=== PATIENT | female | born 1940 | race Caucasian/White ===

== ENCOUNTER 2016-12-15 06:30 | Inpatient (IN) | payer MEDICARE, OTHER ==
[~2016-12-15] VITALS: Ht 157.5 cm; Wt 54.6 kg
[2016-12-15] MEDS ORDERED: SODIUM CHLORIDE 0.9% 500 ML IV ONE (06:57)
[2016-12-15] MEDS ORDERED: LORAZEPAM 2MG/ML CPJ IV ONE (07:00)
[2016-12-15 07:18] LABS: BASOPHILS % 0.6 % (0.0-2.0); EOSINOPHILS % 1.7 % (0.0-5.0); HEMATOCRIT. 39.7 % (36.0-48.0); HEMOGLOBIN. 13.1 g/dL (12.0-16.0); LYMPHOCYTES % 26.9 % (20.0-50.0); MEAN CORPUSCULAR HEMOGLOBIN 30.4 pg (28.0-32.0); MEAN CORPUSCULAR VOLUME 92.1 fL (81.0-99.0); NEUTROPHILS % 64.8 % (40.0-76.0); PLATELET 178 x1000/uL (130-400); RED BLOOD CELL COUNT 4.31 mill/uL (4.2-5.4); RED CELL DISTRIBUTION WIDTH 15.5 % (11.6-14.6)
[2016-12-15 07:27] LABS: INR 1.1; PROTHROMBIN TIME 10.9 sec (9.4-11.6)
[2016-12-15 07:35] LABS: CARBON DIOXIDE 27 mEq/L (21-32); CHLORIDE 109 mEq/L (98-107); CREATINE KINASE 49 IU/L (26-192); ETHANOL BLOOD < 10 mg/dL; TROPONIN I < 0.02 ng/mL (0.00-0.04)
[2016-12-15 09:02] LABS: GLUCOSE URINE NEGATIVE (NEGATIVE); KETONES URINE NEGATIVE (NEGATIVE); LEUKOCYTE ESTERASE URINE NEGATIVE (NEGATIVE); NITRITE URINE NEGATIVE (NEGATIVE); OCCULT BLOOD URINE NEGATIVE (NEGATIVE); PH URINE 6.5 (4.5-8.0); PROTEIN URINE NEGATIVE (NEGATIVE)
[2016-12-15 09:08] LABS: CLARITY URINE CLEAR (CLEAR); COLOR URINE YELLOW (YELLOW)
[2016-12-15 09:14] LABS: *AMPHETAMINES SCREEN URINE NEGATIVE (NEGATIVE); *BARBITURATES SCREEN URINE NEGATIVE (NEGATIVE); *BENZODIAZEPINES SCREEN URINE NEGATIVE (NEGATIVE); *COCAINE SCREEN URINE NEGATIVE (NEGATIVE); CANNABINOID URINE SCREEN NEGATIVE (NEGATIVE); METHADONE URINE SCREEN NEGATIVE (NEGATIVE); OPIATES URINE SCREEN NEGATIVE (NEGATIVE); PHENCYCLIDINE URINE SCREEN NEGATIVE (NEGATIVE)
[2016-12-15] MEDS ORDERED: DEXTROSE 50% WATER 50ML SYRINGE IV ONE (10:00)
[2016-12-15 11:15] VITALS: BP 127/79
[2016-12-15 11:37] VITALS: BP 127/72
[2016-12-15 12:47] VITALS: BP 127/79
[2016-12-15] MEDS ORDERED: ACETAMINOPHEN 325MG TABLET PO PRN (13:00)
[2016-12-15] MEDS ORDERED: DIPHENHYDRAMINE 50MG/ML VIAL IV PRN (13:00)
[2016-12-15] MEDS ORDERED: ONDANSETRON HCL 4MG/2ML VIAL IV PRN (13:00)
[2016-12-15 14:40] LABS: T4 FREE 1.04 ng/dL (0.76-1.46)
[2016-12-15 14:57] LABS: FOLIC ACID (FOLATE) SERUM > 20.00 ng/mL (>5.38)
[2016-12-15 14:58] LABS: VITAMIN B12 SERUM 1023 pg/mL (211-911)
[2016-12-15 16:04] LABS: AMMONIA 44 uMol/L (<32)
[2016-12-15] MEDS: LORAZEPAM 2MG/ML CPJ IV PRN (16:06)
[2016-12-15 17:15] VITALS: BP 133/70
[2016-12-15 20:00] VITALS: BP 130/70
[2016-12-15 20:18] VITALS: BP 130/70
[2016-12-15] MEDS: QUETIAPINE FUMARATE 25MG TABLET PO SCH (21:12)
[2016-12-15] MEDS: SODIUM CHLORIDE 0.9% INJ 3ML FLUSH IVF SCH (21:12)
[2016-12-16] VITALS: BP 112/65
[2016-12-16 04:00] VITALS: BP 126/84
[2016-12-16] MEDS: SODIUM CHLORIDE 0.9% INJ 3ML FLUSH IVF SCH ×4 (06:00→21:37)
[2016-12-16 08:00] VITALS: BP 134/78
[2016-12-16] MEDS: QUETIAPINE FUMARATE 25MG TABLET PO SCH ×2 (09:00→21:37)
[2016-12-16] MEDS: LORAZEPAM 2MG/ML CPJ IV PRN (10:45)
[2016-12-16 12:00] VITALS: BP 117/81
[2016-12-16 16:00] VITALS: BP 141/91
[2016-12-16 20:00] VITALS: BP 115/75
[2016-12-17] VITALS: BP 148/94
[2016-12-17 04:00] VITALS: BP 132/82
[2016-12-17] MEDS: SODIUM CHLORIDE 0.9% INJ 3ML FLUSH IVF SCH ×3 (06:36→21:27)
[2016-12-17 08:00] VITALS: BP 126/88
[2016-12-17] MEDS: QUETIAPINE FUMARATE 25MG TABLET PO SCH ×2 (09:47→20:44)
[2016-12-17 12:00] VITALS: BP 119/76
[2016-12-17] MEDS: DILTIAZEM HCL 30MG TABLET PO SCH ×2 (12:42→18:44)
[2016-12-17 12:50] LABS: AMMONIA 15 uMol/L (<32)
[2016-12-17 17:43] LABS: CARBON DIOXIDE 29 mEq/L (21-32); CHLORIDE 105 mEq/L (98-107)
[2016-12-17] MEDS: LORAZEPAM 2MG/ML CPJ IV PRN (18:45)
[2016-12-17 20:00] VITALS: BP 138/84
[2016-12-17] MEDS: METOPROLOL TARTRATE 25MG TABLET PO SCH (20:44)
[2016-12-18] VITALS (7 sets, daily range): BP systolic 97–130; BP diastolic 56–88
[2016-12-18] MEDS: DILTIAZEM HCL 30MG TABLET PO SCH ×4 (05:39→18:00)
[2016-12-18] MEDS: SODIUM CHLORIDE 0.9% INJ 3ML FLUSH IVF SCH ×3 (05:40→21:56)
[2016-12-18] MEDS: LORAZEPAM 2MG/ML CPJ IV PRN (05:52)
[2016-12-18] MEDS: QUETIAPINE FUMARATE 25MG TABLET PO SCH ×2 (08:58→21:47)
[2016-12-18] MEDS: METOPROLOL TARTRATE 25MG TABLET PO SCH (08:59)
[2016-12-18] MEDS ORDERED: ATROPINE SULFATE 1MG/10ML SYR IV SCH (11:00)
[2016-12-18 14:49] LABS: CARBON DIOXIDE 28 mEq/L (21-32); CHLORIDE 104 mEq/L (98-107)
[2016-12-19] VITALS (7 sets, daily range): BP systolic 96–131; BP diastolic 53–77
[2016-12-19] MEDS: DILTIAZEM HCL 30MG TABLET PO SCH ×4 (00:10→14:18)
[2016-12-19] MEDS: SODIUM CHLORIDE 0.9% INJ 3ML FLUSH IVF SCH ×2 (05:57→14:18)
[2016-12-19 06:42] LABS: EOSINOPHILS % 4.7 % (0.0-5.0); HEMOGLOBIN. 14.5 g/dL (12.0-16.0); LYMPHOCYTES % 32.8 % (20.0-50.0); MEAN CORPUSCULAR HEMOGLOBIN 30.3 pg (28.0-32.0); MEAN CORPUSCULAR VOLUME 90.3 fL (81.0-99.0); MEAN PLATELET VOLUME 9.6 fl (7.4-10.4); MONOCYTES % 10.2 % (2.0-8.0); NEUTROPHILS % 51.3 % (40.0-76.0); PLATELET 202 x1000/uL (130-400); RED BLOOD CELL COUNT 4.77 mill/uL (4.2-5.4); RED CELL DISTRIBUTION WIDTH 15.2 % (11.6-14.6)
[2016-12-19] MEDS: QUETIAPINE FUMARATE 25MG TABLET PO SCH (08:36)
== END 2016-12-19 20:00 | DRG 308 ==
LOC: ER 06:52 → ENRESERV 09:59 → 7WST 10:17 → EDBEDREQ 10:19
PROVIDERS: ADMIT Internal Medicine; ATTEND Internal Medicine
DX: I48.91 Unspecified atrial fibrillation (principal); G92 Toxic encephalopathy; I11.9 Hypertensive heart disease without heart failure; F03.91 Unspecified dementia, unspecified severity, with behavioral disturbance; E03.9 Hypothyroidism, unspecified; I48.92 Unspecified atrial flutter; Z79.82 Long term (current) use of aspirin; Z85.3 Personal history of malignant neoplasm of breast; Z90.10 Acquired absence of unspecified breast and nipple; Z79.899 Other long term (current) drug therapy
CPT/HCPCS: 36415; 70450; 70551; 71010; 80048; 80053; 80305; 81003; 82140; 82550; 82607; 82746; 82962; 83036; 83735; 84439; 84443; 84481; 84484; 85025; 85610; 87077; 87086; 87186; 92610; 93005; 96361; 96374; 99285; A6261; G0482; J0461; J2060; J7040

== ENCOUNTER 2017-05-22 07:13 | Inpatient (IN) | payer MEDICARE, OTHER ==
[2017-05-22] VITALS (41 sets, daily range): BP systolic 83–154; BP diastolic 40–106
[~2017-05-22] VITALS: Ht 157.5 cm; Wt 58.5 kg
[2017-05-22] MEDS ORDERED: SODIUM CHLORIDE 0.9% 1000ML BAG (SEPSIS BOLUS) IV ONE (07:30)
[2017-05-22] MEDS ORDERED: NOREPINEPHRINE 4 MG in DEXT 5% WATER 246 ML IV ONE ×4 (08:00)
[2017-05-22] MEDS ORDERED: LIDOCAINE HCL 1% 20ML VIAL (Pyxis) INJ ONE (08:09)
[2017-05-22] MEDS ORDERED: SODIUM BICARBONATE 4% (2.4MEQ) 5ML VIAL IV ONE (08:10)
[2017-05-22 08:11] LABS: BG BASE EXCESS -10.6 mmol/L (-2.0-2.0); BG DEOXYHEMOGLOBIN 2.6 % (0.0-5.0); BG FRACTION INSPIRED OXYGEN 21; BG HCO3 ACT 12.8 mmol/L (22.0-26.0); BG METHEMOGLOBIN 0.1 % (0.0-1.5); BG OXYGEN SATURATION 97.4 % (92.0-98.5); BG OXYHEMOGLOBIN 96.3 % (94.0-97.0); BG PH 7.362 (7.350-7.450); BG PO2 106.7 mmHg (75.0-100.0); BG SAMPLE SITE RIGHT BRACHIAL; BG TOTAL HEMOGLOBIN 13.4 g/dL (12.0-18.0); BG VENT MODE ROOM AIR
[2017-05-22] MEDS ORDERED: PIPERACILLIN/TAZ 3.375G PREMIX 50 ML IV ONE (08:30)
[2017-05-22 09:39] LABS: BASOPHILS % 0.2 % (0.0-2.0); EOSINOPHILS % 0.3 % (0.0-5.0); HEMOGLOBIN. 13.4 g/dL (12.0-16.0); LYMPHOCYTES % 19.8 % (20.0-50.0); MEAN CORPUSCULAR HEMOGLOBIN 28.7 pg (28.0-32.0); MEAN CORPUSCULAR VOLUME 89.8 fL (81.0-99.0); MEAN PLATELET VOLUME 8.9 fl (7.4-10.4); NEUTROPHILS % 68.7 % (40.0-76.0); PLATELET 397 x1000/uL (130-400); RED BLOOD CELL COUNT 4.68 mill/uL (4.2-5.4); RED CELL DISTRIBUTION WIDTH 17.3 % (11.6-14.6)
[2017-05-22 09:44] LABS: PARTIAL THROMBOPLASTIN TIME 26.3 sec (23.4-31.0); PROTHROMBIN TIME 10.8 sec (9.4-11.6)
[2017-05-22 09:51] LABS: CHLORIDE 95 mEq/L (98-107)
[2017-05-22] MEDS ORDERED: SUCCINYLCHOLINE CHLORIDE 200MG/10ML VIAL IV ONE ×2 (10:20→12:15)
[2017-05-22] MEDS ORDERED: ETOMIDATE 2MG/ML 10ML VIAL IV ONE (10:20)
[2017-05-22] MEDS ORDERED: BUPIVACAINE HCL 0.5% (5MG/ML) 50ML ONE (10:35)
[2017-05-22] MEDS ORDERED: DEXT 5%/0.45% NACL KCL 20MEQ/L 1,000 ML IV SCH (11:53)
[2017-05-22] MEDS ORDERED: MORPHINE SULFATE 4 MG/ML CPJ (NOT FOR IM USE) IV PRN ×2 (12:00)
[2017-05-22] MEDS ORDERED: MIDAZOLAM HCL 50 MG in DEXTROSE 5% WATER 40 ML IV ONE (12:15)
[2017-05-22] MEDS ORDERED: ALBUMIN HUMAN 12.5G/250ML (5%) IV ONE (13:58)
[2017-05-22] MEDS ORDERED: MIDAZOLAM HCL 2 MG/2 ML VIAL ONE (14:03)
[2017-05-22] MEDS ORDERED: NOREPINEPHRINE 4 MG in DEXTROSE 5% WATER 250 ML IV PRN (14:15)
[2017-05-22] MEDS ORDERED: PIPERACILLIN/TAZOBACTAM 3.375GM/50ML PREMIX IV STA (14:16)
[2017-05-22 14:22] LABS: CLARITY URINE CLOUDY (CLEAR); COLOR URINE YELLOW (YELLOW); KETONES URINE NEGATIVE (NEGATIVE); LEUKOCYTE ESTERASE URINE 1+ (NEGATIVE); NITRITE URINE NEGATIVE (NEGATIVE); OCCULT BLOOD URINE 1+ (NEGATIVE); PH URINE 5.5 (4.5-8.0); PROTEIN URINE TRACE (NEGATIVE); SPECIFIC GRAVITY URINE 1.026 (1.005-1.030)
[2017-05-22] MEDS ORDERED: SODIUM CHLORIDE 0.9% 10ML VIAL ONE ×2 (14:26→14:59)
[2017-05-22] MEDS ORDERED: VECURONIUM BROMIDE 10 MG/VIAL IV ONE (14:26)
[2017-05-22] MEDS ORDERED: PIPERACILLIN/TAZ 3.375G PREMIX 50 ML IV NR (14:30)
[2017-05-22] MEDS ORDERED: IPRATROPIUM/ALBUTEROL 0.5-3(2.5)MG/3ML NEB HHN PRN (14:45)
[2017-05-22] MEDS ORDERED: PROPOFOL 10MG/ML 100ML 100 ML IV PRN (14:45)
[2017-05-22] MEDS ORDERED: FENTANYL CITRATE/PF 50MCG/ML 2ML VIAL ONE (14:46)
[2017-05-22] MEDS ORDERED: EPHEDRINE SULFATE 50MG/ML VIAL ONE (14:59)
[2017-05-22] MEDS ORDERED: ONDANSETRON HCL 4MG/2ML VIAL ONE (14:59)
[2017-05-22] MEDS ORDERED: DEXAMETHASONE 4MG/ML 1ML VIAL ONE (14:59)
[2017-05-22] MEDS ORDERED: ONDANSETRON HCL 4MG/2ML VIAL IV PRN (15:15)
[2017-05-22] MEDS ORDERED: MEPERIDINE HCL/PF 25MG/ML CPJ IV PRN (15:15)
[2017-05-22] MEDS ORDERED: LABETALOL 5MG/ML SYR 20 MG/4 ML SYRINGE IV PRN (15:15)
[2017-05-22] MEDS ORDERED: HYDROMORPHONE HCL/PF 2MG/ML CPJ IV PRN (15:15)
[2017-05-22 15:30] LABS: BG BASE EXCESS -17.3 mmol/L (-2.0-2.0); BG CARBOXYHEMOGLOBIN 0.3 % (0.5-1.5); BG DEOXYHEMOGLOBIN 0.6 % (0.0-5.0); BG FRACTION INSPIRED OXYGEN 100; BG HCO3 ACT 10.7 mmol/L (22.0-26.0); BG METHEMOGLOBIN 0.3 % (0.0-1.5); BG OXYGEN SATURATION 99.4 % (92.0-98.5); BG OXYHEMOGLOBIN 98.8 % (94.0-97.0); BG PCO2 32.7 mmHg (35.0-45.0); BG PH 7.131 (7.350-7.450); BG PO2 575.2 mmHg (75.0-100.0); BG SAMPLE SITE RIGHT BRACHIAL; BG TIDAL VOLUME(mL) 400 mL; BG TOTAL HEMOGLOBIN 10.2 g/dL (12.0-18.0); BG VENT MODE VENT - A/C; BG VENT RATE 12 set
[2017-05-22] MEDS ORDERED: FENTANYL CITRATE/PF 500 MCG in SODIUM CHLORIDE 0.9% 40 ML IV PRN (15:30)
[2017-05-22] MEDS ORDERED: SODIUM BICARBONATE 8.4% 1 MEQ/ML 50ML SYR IV ONE (15:45)
[2017-05-22 16:05] LABS: BASOPHILS % 0.4 % (0.0-2.0); EOSINOPHILS % 0.2 % (0.0-5.0); HEMOGLOBIN. 10.1 g/dL (12.0-16.0); MEAN CORPUSCULAR HEMOGLOBIN 29.4 pg (28.0-32.0); MEAN CORPUSCULAR VOLUME 87.5 fL (81.0-99.0); MEAN PLATELET VOLUME 8.2 fl (7.4-10.4); MONOCYTES % 9.7 % (2.0-8.0); NEUTROPHILS % 63.7 % (40.0-76.0); PLATELET 265 x1000/uL (130-400); RED BLOOD CELL COUNT 3.43 mill/uL (4.2-5.4); RED CELL DISTRIBUTION WIDTH 16.3 % (11.6-14.6)
[2017-05-22 16:23] LABS: CHLORIDE 104 mEq/L (98-107)
[2017-05-22] MEDS: PHENYLEPHRINE 10 MG in DEXT 5% WATER 249 ML IV PRN ×2 (16:46→18:16)
[2017-05-22] MEDS: PANTOPRAZOLE SODIUM 40 MG/VIAL IV SCH (16:47)
[2017-05-22] MEDS ORDERED: VANCOMYCIN 1 G PREMIX 200 ML IV SCH (17:00)
[2017-05-22] MEDS: SODIUM BICARBONATE 150 MEQ in DEXT 5%/0.45% NACL 1000ML 1,000 ML IV SCH (17:26)
[2017-05-22 18:24] LABS: BG BASE EXCESS -9.9 mmol/L (-2.0-2.0); BG CARBOXYHEMOGLOBIN 0.5 % (0.5-1.5); BG DEOXYHEMOGLOBIN 2.2 % (0.0-5.0); BG FRACTION INSPIRED OXYGEN 40; BG HCO3 ACT 15.5 mmol/L (22.0-26.0); BG METHEMOGLOBIN 0.2 % (0.0-1.5); BG OXYGEN SATURATION 97.8 % (92.0-98.5); BG OXYHEMOGLOBIN 97.1 % (94.0-97.0); BG PCO2 32.2 mmHg (35.0-45.0); BG PH 7.299 (7.350-7.450); BG PO2 117.3 mmHg (75.0-100.0); BG SAMPLE SITE RIGHT BRACHIAL; BG TIDAL VOLUME(mL) 400 mL; BG TOTAL HEMOGLOBIN 12.3 g/dL (12.0-18.0); BG VENT MODE VENT - A/C; BG VENT RATE 18 set
[2017-05-22] MEDS: IPRATROPIUM/ALBUTEROL 0.5-3(2.5)MG/3ML NEB HHN SCH (20:07)
[2017-05-22] MEDS: NOREPINEPHRINE 8 MG in DEXT 5% WATER 242 ML IV PRN (20:25)
[2017-05-22] MEDS: PHENYLEPHRINE 40 MG in DEXT 5% WATER 246 ML IV PRN (21:06)
[2017-05-22] MEDS: PIPERACILLIN/TAZ 3.375G PREMIX 50 ML IV SCH (21:31)
[2017-05-23] VITALS (90 sets, daily range): BP systolic 72–144; BP diastolic 45–97
[2017-05-23] MEDS: IPRATROPIUM/ALBUTEROL 0.5-3(2.5)MG/3ML NEB HHN SCH ×7 (00:16→23:40)
[2017-05-23] MEDS: NOREPINEPHRINE 8 MG in DEXT 5% WATER 242 ML IV PRN (04:25)
[2017-05-23] MEDS: SODIUM BICARBONATE 150 MEQ in DEXT 5%/0.45% NACL 1000ML 1,000 ML IV SCH (04:25)
[2017-05-23] MEDS: PHENYLEPHRINE 40 MG in DEXT 5% WATER 246 ML IV PRN ×2 (04:25→10:58)
[2017-05-23 05:32] LABS: HEMATOCRIT. 35.1 % (36.0-48.0); HEMOGLOBIN. 11.7 g/dL (12.0-16.0); MEAN CORPUSCULAR HEMOGLOBIN 28.8 pg (28.0-32.0); MEAN CORPUSCULAR VOLUME 86.9 fL (81.0-99.0); PLATELET 240 x1000/uL (130-400); RED BLOOD CELL COUNT 4.04 mill/uL (4.2-5.4); RED CELL DISTRIBUTION WIDTH 16.5 % (11.6-14.6)
[2017-05-23] MEDS: PIPERACILLIN/TAZ 3.375G PREMIX 50 ML IV SCH ×3 (05:45→21:11)
[2017-05-23] MEDS ORDERED: DIGOXIN 500MCG/2ML AMP IV NR (06:00)
[2017-05-23 07:45] LABS: BG BASE EXCESS -2.3 mmol/L (-2.0-2.0); BG CARBOXYHEMOGLOBIN 0.3 % (0.5-1.5); BG DEOXYHEMOGLOBIN 4.7 % (0.0-5.0); BG FRACTION INSPIRED OXYGEN 40; BG HCO3 ACT 18.8 mmol/L (22.0-26.0); BG METHEMOGLOBIN 0.3 % (0.0-1.5); BG OXYGEN SATURATION 95.3 % (92.0-98.5); BG OXYHEMOGLOBIN 94.7 % (94.0-97.0); BG PCO2 22.9 mmHg (35.0-45.0); BG PH 7.533 (7.350-7.450); BG PO2 72.2 mmHg (75.0-100.0); BG SAMPLE SITE RIGHT BRACHIAL; BG TIDAL VOLUME(mL) 400 mL; BG TOTAL HEMOGLOBIN 11.5 g/dL (12.0-18.0); BG VENT MODE VENT - A/C; BG VENT RATE 18 set
[2017-05-23] MEDS: PANTOPRAZOLE SODIUM 40 MG/VIAL IV SCH (10:58)
[2017-05-23 13:26] LABS: PLATELET ESTIMATE NORMAL
[2017-05-23] MEDS: VANCOMYCIN 1 G PREMIX 200 ML IV SCH (15:57)
[2017-05-23] MEDS: DEXT 5%/0.45% NACL 1000ML 1,000 ML IV SCH (15:58)
[2017-05-23] MEDS ORDERED: PHENYLEPHRINE 80 MG in DEXT 5% WATER 492 ML IV PRN (17:15)
[2017-05-23] MEDS: DIGOXIN 500MCG/2ML AMP IV SCH (18:12)
[2017-05-24] VITALS (92 sets, daily range): BP systolic 93–175; BP diastolic 38–98
[2017-05-24] MEDS: DEXT 5%/0.45% NACL 1000ML 1,000 ML IV SCH ×2 (03:03→20:52)
[2017-05-24] MEDS: IPRATROPIUM/ALBUTEROL 0.5-3(2.5)MG/3ML NEB HHN SCH ×5 (03:58→21:29)
[2017-05-24] MEDS: PIPERACILLIN/TAZ 3.375G PREMIX 50 ML IV SCH ×3 (05:12→21:05)
[2017-05-24 05:44] LABS: HEMATOCRIT. 28.4 % (36.0-48.0); MEAN CORPUSCULAR HEMOGLOBIN 29.9 pg (28.0-32.0); MEAN PLATELET VOLUME 8.5 fl (7.4-10.4); PLATELET 148 x1000/uL (130-400); RED BLOOD CELL COUNT 3.34 mill/uL (4.2-5.4); RED CELL DISTRIBUTION WIDTH 16.6 % (11.6-14.6)
[2017-05-24 05:54] LABS: CHLORIDE 100 mEq/L (98-107)
[2017-05-24] MEDS: VANCOMYCIN 1 G PREMIX 200 ML IV SCH (06:50)
[2017-05-24 07:56] LABS: PLATELET ESTIMATE NORMAL
[2017-05-24] MEDS ORDERED: POTASSIUM CHLORIDE INJ 40 MEQ in SODIUM CHLORIDE 0.9% 250 ML IV SCH (09:00)
[2017-05-24 09:30] LABS: BG BASE EXCESS 4.2 mmol/L (-2.0-2.0); BG CARBOXYHEMOGLOBIN 0.3 % (0.5-1.5); BG DEOXYHEMOGLOBIN 1.2 % (0.0-5.0); BG FRACTION INSPIRED OXYGEN 40; BG HCO3 ACT 25.7 mmol/L (22.0-26.0); BG METHEMOGLOBIN 0.3 % (0.0-1.5); BG OXYGEN SATURATION 98.8 % (92.0-98.5); BG OXYHEMOGLOBIN 98.2 % (94.0-97.0); BG PCO2 27.7 mmHg (35.0-45.0); BG PH 7.585 (7.350-7.450); BG PO2 164.4 mmHg (75.0-100.0); BG SAMPLE SITE LEFT RADIAL; BG TIDAL VOLUME(mL) 400 mL; BG TOTAL HEMOGLOBIN 9.9 g/dL (12.0-18.0); BG VENT MODE VENT - A/C; BG VENT RATE 14 set
[2017-05-24] MEDS: PANTOPRAZOLE SODIUM 40 MG/VIAL IV SCH (09:49)
[2017-05-24] MEDS: DIGOXIN 500MCG/2ML AMP IV SCH (18:13)
[2017-05-25] VITALS (42 sets, daily range): BP systolic 107–173; BP diastolic 56–98
[2017-05-25] MEDS: VANCOMYCIN 1 G PREMIX 200 ML IV SCH ×2 (00:51→18:43)
[2017-05-25] MEDS: IPRATROPIUM/ALBUTEROL 0.5-3(2.5)MG/3ML NEB HHN SCH ×6 (03:52→20:16)
[2017-05-25] MEDS: PIPERACILLIN/TAZ 3.375G PREMIX 50 ML IV SCH ×3 (05:06→21:15)
[2017-05-25] MEDS: DEXT 5%/0.45% NACL 1000ML 1,000 ML IV SCH ×3 (08:12→22:13)
[2017-05-25] MEDS: PANTOPRAZOLE SODIUM 40 MG/VIAL IV SCH (08:13)
[2017-05-25 08:35] LABS: BG CARBOXYHEMOGLOBIN 0.3 % (0.5-1.5); BG DEOXYHEMOGLOBIN 1.6 % (0.0-5.0); BG FRACTION INSPIRED OXYGEN 35; BG HCO3 ACT 21.7 mmol/L (22.0-26.0); BG OXYGEN SATURATION 98.4 % (92.0-98.5); BG OXYHEMOGLOBIN 98.1 % (94.0-97.0); BG PCO2 25.7 mmHg (35.0-45.0); BG PH 7.544 (7.350-7.450); BG PO2 152.1 mmHg (75.0-100.0); BG SAMPLE SITE RIGHT RADIAL; BG TIDAL VOLUME(mL) 400 mL; BG TOTAL HEMOGLOBIN 9.7 g/dL (12.0-18.0); BG VENT MODE VENT - A/C; BG VENT RATE 12 set
[2017-05-25] MEDS ORDERED: POTASSIUM CHLORIDE INJ 40 MEQ in SODIUM CHLORIDE 0.9% 250 ML IV NR ×2 (11:30→13:30)
[2017-05-25 12:52] LABS: BG BASE EXCESS -0.1 mmol/L (-2.0-2.0); BG CARBOXYHEMOGLOBIN 0.3 % (0.5-1.5); BG DEOXYHEMOGLOBIN 1.3 % (0.0-5.0); BG FRACTION INSPIRED OXYGEN 35; BG HCO3 ACT 22.1 mmol/L (22.0-26.0); BG METHEMOGLOBIN 0.1 % (0.0-1.5); BG OXYGEN SATURATION 98.7 % (92.0-98.5); BG OXYHEMOGLOBIN 98.3 % (94.0-97.0); BG PCO2 27.8 mmHg (35.0-45.0); BG PH 7.519 (7.350-7.450); BG PO2 179.5 mmHg (75.0-100.0); BG PRESSURE SUPPORT 8; BG SAMPLE SITE RIGHT RADIAL; BG TOTAL HEMOGLOBIN 9.9 g/dL (12.0-18.0); BG VENT MODE VENT - CPAP
[2017-05-25] MEDS: LEVOFLOXACIN 750MG PREMIX 150 ML IV SCH (15:36)
[2017-05-25] MEDS: DIGOXIN 500MCG/2ML AMP IV SCH (18:43)
[2017-05-26] VITALS (25 sets, daily range): BP systolic 111–157; BP diastolic 36–97
[2017-05-26] MEDS: IPRATROPIUM/ALBUTEROL 0.5-3(2.5)MG/3ML NEB HHN SCH ×6 (00:04→19:54)
[2017-05-26 04:52] LABS: HEMATOCRIT. 27.2 % (36.0-48.0); HEMOGLOBIN. 9.4 g/dL (12.0-16.0); MEAN CORPUSCULAR HEMOGLOBIN 29.7 pg (28.0-32.0); MEAN CORPUSCULAR VOLUME 86.1 fL (81.0-99.0); MEAN PLATELET VOLUME 8.7 fl (7.4-10.4); PLATELET 95 x1000/uL (130-400); RED BLOOD CELL COUNT 3.16 mill/uL (4.2-5.4); RED CELL DISTRIBUTION WIDTH 16.3 % (11.6-14.6)
[2017-05-26] MEDS: PIPERACILLIN/TAZ 3.375G PREMIX 50 ML IV SCH ×3 (05:09→21:07)
[2017-05-26 05:12] LABS: CHLORIDE 105 mEq/L (98-107)
[2017-05-26 07:41] LABS: PLATELET ESTIMATE DECREASED
[2017-05-26] MEDS: DEXT 5%/0.45% NACL 1000ML 1,000 ML IV SCH ×3 (08:05→23:24)
[2017-05-26] MEDS: PANTOPRAZOLE SODIUM 40 MG/VIAL IV SCH (08:05)
[2017-05-26] MEDS: VANCOMYCIN 1 G PREMIX 200 ML IV SCH (12:01)
[2017-05-26] MEDS ORDERED: KCL 20MEQ/100ML PREMIX 100 ML IV NR (13:00)
[2017-05-26] MEDS: DIGOXIN 500MCG/2ML AMP IV SCH (17:24)
[2017-05-27] VITALS (12 sets, daily range): BP systolic 100–153; BP diastolic 57–95
[2017-05-27] MEDS: IPRATROPIUM/ALBUTEROL 0.5-3(2.5)MG/3ML NEB HHN SCH ×6 (00:39→21:36)
[2017-05-27] MEDS: PIPERACILLIN/TAZ 3.375G PREMIX 50 ML IV SCH ×3 (05:39→21:06)
[2017-05-27] MEDS: VANCOMYCIN 1 G PREMIX 200 ML IV SCH (06:54)
[2017-05-27 07:52] LABS: BASOPHILS % 0.1 % (0.0-2.0); EOSINOPHILS % 1.2 % (0.0-5.0); HEMATOCRIT. 28.5 % (36.0-48.0); HEMOGLOBIN. 9.8 g/dL (12.0-16.0); LYMPHOCYTES % 9.7 % (20.0-50.0); MEAN CORPUSCULAR HEMOGLOBIN 29.2 pg (28.0-32.0); MEAN CORPUSCULAR VOLUME 85.3 fL (81.0-99.0); MEAN PLATELET VOLUME 9.2 fl (7.4-10.4); PLATELET 116 x1000/uL (130-400); RED BLOOD CELL COUNT 3.34 mill/uL (4.2-5.4); RED CELL DISTRIBUTION WIDTH 16.4 % (11.6-14.6)
[2017-05-27 08:07] LABS: CHLORIDE 105 mEq/L (98-107)
[2017-05-27] MEDS: PANTOPRAZOLE SODIUM 40 MG/VIAL IV SCH (08:48)
[2017-05-27] MEDS: LEVOFLOXACIN 750MG PREMIX 150 ML IV SCH (14:27)
[2017-05-27] MEDS: DIGOXIN 500MCG/2ML AMP IV SCH (17:04)
[2017-05-28] VITALS (12 sets, daily range): BP systolic 111–139; BP diastolic 53–86
[2017-05-28] MEDS: VANCOMYCIN 1 G PREMIX 200 ML IV SCH ×2 (00:33→18:08)
[2017-05-28] MEDS: IPRATROPIUM/ALBUTEROL 0.5-3(2.5)MG/3ML NEB HHN SCH ×6 (01:27→20:38)
[2017-05-28] MEDS: PIPERACILLIN/TAZ 3.375G PREMIX 50 ML IV SCH ×3 (06:27→21:15)
[2017-05-28 06:34] LABS: BASOPHILS % 0.1 % (0.0-2.0); EOSINOPHILS % 0.6 % (0.0-5.0); HEMATOCRIT. 26.7 % (36.0-48.0); LYMPHOCYTES % 8.7 % (20.0-50.0); MEAN CORPUSCULAR HEMOGLOBIN 28.6 pg (28.0-32.0); MEAN CORPUSCULAR VOLUME 84.5 fL (81.0-99.0); MONOCYTES % 5.5 % (2.0-8.0); NEUTROPHILS % 85.1 % (40.0-76.0); PLATELET 136 x1000/uL (130-400); RED BLOOD CELL COUNT 3.17 mill/uL (4.2-5.4); RED CELL DISTRIBUTION WIDTH 16.5 % (11.6-14.6)
[2017-05-28 07:29] LABS: CHLORIDE 104 mEq/L (98-107)
[2017-05-28] MEDS: PANTOPRAZOLE SODIUM 40 MG/VIAL IV SCH (08:28)
[2017-05-28] MEDS: DIGOXIN 500MCG/2ML AMP IV SCH (18:08)
[2017-05-29] VITALS (12 sets, daily range): BP systolic 116–154; BP diastolic 55–80
[2017-05-29] MEDS: IPRATROPIUM/ALBUTEROL 0.5-3(2.5)MG/3ML NEB HHN SCH ×6 (01:07→19:54)
[2017-05-29] MEDS: PIPERACILLIN/TAZ 3.375G PREMIX 50 ML IV SCH ×3 (05:27→22:06)
[2017-05-29] MEDS: PANTOPRAZOLE SODIUM 40 MG/VIAL IV SCH (08:26)
[2017-05-29] MEDS: VANCOMYCIN 1 G PREMIX 200 ML IV SCH (12:39)
[2017-05-29] MEDS: LEVOFLOXACIN 750MG PREMIX 150 ML IV SCH (13:49)
[2017-05-29] MEDS: DIGOXIN 500MCG/2ML AMP IV SCH (17:07)
[2017-05-30] VITALS (12 sets, daily range): BP systolic 117–162; BP diastolic 59–72
[2017-05-30] MEDS: IPRATROPIUM/ALBUTEROL 0.5-3(2.5)MG/3ML NEB HHN SCH ×6 (00:36→20:41)
[2017-05-30 06:30] LABS: BASOPHILS % 0.3 % (0.0-2.0); EOSINOPHILS % 1.1 % (0.0-5.0); HEMATOCRIT. 26.6 % (36.0-48.0); LYMPHOCYTES % 8.2 % (20.0-50.0); MEAN CORPUSCULAR HEMOGLOBIN 28.7 pg (28.0-32.0); MEAN CORPUSCULAR VOLUME 84.5 fL (81.0-99.0); MEAN PLATELET VOLUME 9.3 fl (7.4-10.4); MONOCYTES % 5.9 % (2.0-8.0); NEUTROPHILS % 84.5 % (40.0-76.0); PLATELET 224 x1000/uL (130-400); RED BLOOD CELL COUNT 3.15 mill/uL (4.2-5.4)
[2017-05-30 06:34] LABS: CHLORIDE 103 mEq/L (98-107)
[2017-05-30] MEDS: PANTOPRAZOLE SODIUM 40 MG/VIAL IV SCH (08:19)
[2017-05-30] MEDS: DIGOXIN 500MCG/2ML AMP IV SCH (17:16)
[2017-05-31] VITALS (12 sets, daily range): BP systolic 120–156; BP diastolic 57–82
[2017-05-31] MEDS: IPRATROPIUM/ALBUTEROL 0.5-3(2.5)MG/3ML NEB HHN SCH ×6 (00:34→20:56)
[2017-05-31] MEDS: PANTOPRAZOLE SODIUM 40 MG/VIAL IV SCH (09:11)
[2017-05-31] MEDS ORDERED: DEXT 5%/0.45% NACL 1000ML 1,000 ML IV SCH (12:45)
[2017-05-31] MEDS: DEXT 5%/0.45% NACL 1000ML 1,000 ML IV SCH (12:48)
[2017-05-31] MEDS: LEVOFLOXACIN 750MG PREMIX 150 ML IV SCH (17:46)
[2017-05-31] MEDS: DIGOXIN 500MCG/2ML AMP IV SCH (17:46)
[2017-06-01] VITALS (9 sets, daily range): BP systolic 99–146; BP diastolic 64–70
[2017-06-01] MEDS: DEXT 5%/0.45% NACL 1000ML 1,000 ML IV SCH (00:53)
[2017-06-01] MEDS: IPRATROPIUM/ALBUTEROL 0.5-3(2.5)MG/3ML NEB HHN SCH ×5 (00:56→20:30)
[2017-06-01] MEDS ORDERED: LIDOCAINE HCL 1% 20ML VIAL (Pyxis) INJ ONE (08:08)
[2017-06-01] MEDS ORDERED: DIATR MEGLU/DIATRIZOATE SOLN 30ML ONE (08:08)
[2017-06-01] MEDS ORDERED: SODIUM BICARBONATE 4% (2.4MEQ) 5ML VIAL IV ONE (08:08)
[2017-06-01] MEDS ORDERED: LIDOCAINE HCL 2% JELLY 5ML ONE (08:09)
[2017-06-01] MEDS: PANTOPRAZOLE SODIUM 40 MG/VIAL IV SCH (09:30)
[2017-06-01] MEDS: DIGOXIN 500MCG/2ML AMP IV SCH (17:39)
[2017-06-02] VITALS (15 sets, daily range): BP systolic 120–159; BP diastolic 55–92
[2017-06-02] MEDS: IPRATROPIUM/ALBUTEROL 0.5-3(2.5)MG/3ML NEB HHN SCH ×6 (00:03→19:59)
[2017-06-02] MEDS: PANTOPRAZOLE SODIUM 40 MG/VIAL IV SCH (08:55)
[2017-06-02] MEDS: DIGOXIN 500MCG/2ML AMP IV SCH (17:04)
[2017-06-02] MEDS ORDERED: ACETAMINOPHEN 650MG/20.3ML UDC GT PRN (20:00)
[2017-06-02] MEDS ORDERED: ACETAMINOPHEN 650MG/20.3ML UDC PO PRN (20:00)
[2017-06-03] VITALS: BP 132/54
[2017-06-03] MEDS: IPRATROPIUM/ALBUTEROL 0.5-3(2.5)MG/3ML NEB HHN SCH ×6 (00:17→20:30)
[2017-06-03 04:00] VITALS: BP 119/56
[2017-06-03 08:00] VITALS: BP 94/73
[2017-06-03] MEDS: PANTOPRAZOLE SODIUM 40 MG/VIAL IV SCH (09:19)
[2017-06-03 12:00] VITALS: BP 106/56
[2017-06-03 16:00] VITALS: BP 143/62
[2017-06-03] MEDS: DIGOXIN 500MCG/2ML AMP IV SCH (18:31)
[2017-06-03 19:56] VITALS: BP 112/67
[2017-06-03] MEDS ORDERED: DILTIAZEM HCL 30MG TABLET PO PRN (20:30)
[2017-06-04] VITALS (7 sets, daily range): BP systolic 98–118; BP diastolic 49–70
[2017-06-04] MEDS: IPRATROPIUM/ALBUTEROL 0.5-3(2.5)MG/3ML NEB HHN SCH ×6 (00:35→20:57)
[2017-06-04] MEDS: PANTOPRAZOLE SODIUM 40 MG/VIAL IV SCH (08:55)
[2017-06-04] MEDS: DIGOXIN 500MCG/2ML AMP IV SCH (17:04)
[2017-06-05] MEDS: IPRATROPIUM/ALBUTEROL 0.5-3(2.5)MG/3ML NEB HHN SCH ×6 (00:46→20:52)
[2017-06-05 04:00] VITALS: BP 107/66
[2017-06-05 08:00] VITALS: BP 109/53
[2017-06-05] MEDS: PANTOPRAZOLE SODIUM 40 MG/VIAL IV SCH (09:03)
[2017-06-05 12:00] VITALS: BP 115/66
[2017-06-05 16:00] VITALS: BP 108/64
[2017-06-05] MEDS: DIGOXIN 500MCG/2ML AMP IV SCH (18:21)
[2017-06-05 20:00] VITALS: BP 123/54
[2017-06-05 21:42] LABS: BASOPHILS % 0.2 % (0.0-2.0); EOSINOPHILS % 0.8 % (0.0-5.0); HEMATOCRIT. 28.6 % (36.0-48.0); HEMOGLOBIN. 9.6 g/dL (12.0-16.0); LYMPHOCYTES % 11.2 % (20.0-50.0); MEAN CORPUSCULAR HEMOGLOBIN 28.1 pg (28.0-32.0); MEAN CORPUSCULAR VOLUME 83.4 fL (81.0-99.0); MEAN PLATELET VOLUME 8.6 fl (7.4-10.4); MONOCYTES % 6.3 % (2.0-8.0); NEUTROPHILS % 81.5 % (40.0-76.0); PLATELET 481 x1000/uL (130-400); RED BLOOD CELL COUNT 3.43 mill/uL (4.2-5.4); RED CELL DISTRIBUTION WIDTH 17.3 % (11.6-14.6)
[2017-06-05 22:02] LABS: CHLORIDE 106 mEq/L (98-107)
[2017-06-06] VITALS: BP 115/70
[2017-06-06] MEDS: IPRATROPIUM/ALBUTEROL 0.5-3(2.5)MG/3ML NEB HHN SCH ×5 (00:06→15:36)
[2017-06-06 04:00] VITALS: BP 116/70
[2017-06-06 08:00] VITALS: BP 115/72
[2017-06-06] MEDS: PANTOPRAZOLE SODIUM 40 MG/VIAL IV SCH (09:07)
[2017-06-06] MEDS ORDERED: ENOXAPARIN 30MG/0.3ML SYR SUBCUT SCH (10:45)
[2017-06-06] MEDS ORDERED: SODIUM BICARBONATE 4% (2.4MEQ) 5ML VIAL IV ONE (10:58)
[2017-06-06] MEDS ORDERED: LIDOCAINE HCL 1% 20ML VIAL (Pyxis) INJ ONE (10:58)
[2017-06-06 12:00] VITALS: BP 118/53
[2017-06-06 15:05] VITALS: BP 118/53
[2017-06-06 16:00] VITALS: BP 115/76
[2017-06-06] MEDS ORDERED: DIGOXIN 125MCG TABLET PO SCH (18:00)
== END 2017-06-06 19:26 | DRG 853 ==
LOC: ER 07:24 → MICUNO 10:14 → EDBEDREQ 10:23 → EDBEDREQTM 10:23 → MICUSO 15:20 → 5EST 05-26 11:30 → 7WST 06-02 22:11
PROVIDERS: ADMIT Hospitalist; ATTEND Hospitalist
PROC: 0DH60UZ Insertion of Feeding Device into Stomach, Open Approach (ICD-10-PCS; 2017-05-22)
PROC: 0DU907Z Supplement Duodenum with Autologous Tissue Substitute, Open Approach (ICD-10-PCS; 2017-05-22)
PROC: 5A1945Z Respiratory Ventilation, 24-96 Consecutive Hours (ICD-10-PCS; 2017-05-22)
PROC: 05HY33Z Insertion of Infusion Device into Upper Vein, Percutaneous Approach (ICD-10-PCS; 2017-05-22)
PROC: 0BH17EZ Insertion of Endotracheal Airway into Trachea, Via Natural or Artificial Opening (ICD-10-PCS; 2017-05-22)
PROC: 0DHA3UZ Insertion of Feeding Device into Jejunum, Percutaneous Approach (ICD-10-PCS; principal; 2017-05-22 12:00)
DX: A41.9 Sepsis, unspecified organism (principal); G93.41 Metabolic encephalopathy; J96.01 Acute respiratory failure with hypoxia; R65.21 Severe sepsis with septic shock; K26.5 Chronic or unspecified duodenal ulcer with perforation; E44.0 Moderate protein-calorie malnutrition; I48.2 Chronic atrial fibrillation; K56.7 Ileus, unspecified; D68.59 Other primary thrombophilia; I82.621 Acute embolism and thrombosis of deep veins of right upper extremity; E87.1 Hypo-osmolality and hyponatremia; E87.2 Acidosis; I48.92 Unspecified atrial flutter; R18.8 Other ascites; N39.0 Urinary tract infection, site not specified; D64.9 Anemia, unspecified; D72.819 Decreased white blood cell count, unspecified; E03.9 Hypothyroidism, unspecified; E87.5 Hyperkalemia; E88.09 Other disorders of plasma-protein metabolism, not elsewhere classified; E87.6 Hypokalemia; F03.90 Unspecified dementia, unspecified severity, without behavioral disturbance, psychotic disturbance, mood disturbance, and anxiety; I50.9 Heart failure, unspecified; I11.0 Hypertensive heart disease with heart failure; B96.20 Unspecified Escherichia coli [E. coli] as the cause of diseases classified elsewhere; K52.9 Noninfective gastroenteritis and colitis, unspecified; Z90.12 Acquired absence of left breast and nipple; Z85.3 Personal history of malignant neoplasm of breast; Z82.49 Family history of ischemic heart disease and other diseases of the circulatory system; Z68.23 Body mass index [BMI] 23.0-23.9, adult
CPT/HCPCS: 31500; 36415; 36569; 36600; 49450; 51702; 70450; 71045; 74018; 74176; 76937; 80048; 80053; 80162; 80202; 81003; 82375; 82805; 83605; 83690; 83735; 83880; 84478; 84484; 85007; 85025; 85027; 85610; 85730; 86850; 86900; 87040; 87070; 87077; 87086; 87186; 92610; 93005; 93306; 93970; 93971; 94002; 94003; 94640; 96374; 96375; 97163; 97167; 97530; 99291; A4216; A6261; C1725; C1769; C9113; J0330; J1100; J1160; J1650; J1956; J2250; J2270; J2370; J2405; J2543; J3010; J3370; J3480; J3490; J7030; J7040; J7050; J7060; J7620; P9041; Q9963; A4315

== ENCOUNTER 2017-07-01 14:37 | Inpatient (IN) | payer MEDICARE, MEDICAID ==
[~2017-07-01] VITALS: Ht 157.5 cm; Wt 54.4 kg
[2017-07-01] MEDS ORDERED: ONDANSETRON HCL 4MG/2ML VIAL IV STA (15:13)
[2017-07-01] MEDS ORDERED: SODIUM CHLORIDE 0.9% 500 ML IV ONE (15:13)
[2017-07-01 15:50] LABS: CHLORIDE 101 mEq/L (98-107)
[2017-07-01 15:53] LABS: PROTHROMBIN TIME 10.6 sec (9.4-11.6)
[2017-07-01 15:55] LABS: BASOPHILS % 1.2 % (0.0-2.0); HEMATOCRIT. 31.6 % (36.0-48.0); HEMOGLOBIN. 10.6 g/dL (12.0-16.0); LYMPHOCYTES % 15.6 % (20.0-50.0); MEAN CORPUSCULAR HEMOGLOBIN 27.7 pg (28.0-32.0); MEAN CORPUSCULAR VOLUME 82.7 fL (81.0-99.0); MEAN PLATELET VOLUME 7.8 fl (7.4-10.4); MONOCYTES % 7.4 % (2.0-8.0); NEUTROPHILS % 70.8 % (40.0-76.0); PLATELET 466 x1000/uL (130-400); RED BLOOD CELL COUNT 3.83 mill/uL (4.2-5.4); RED CELL DISTRIBUTION WIDTH 20.6 % (11.6-14.6)
[2017-07-01] MEDS ORDERED: PIPERACILLIN/TAZ 3.375G PREMIX 50 ML IV ONE (17:45)
[2017-07-01 18:22] LABS: CLARITY URINE CLOUDY (CLEAR); COLOR URINE YELLOW (YELLOW); KETONES URINE NEGATIVE (NEGATIVE); LEUKOCYTE ESTERASE URINE 2+ (NEGATIVE); NITRITE URINE POSITIVE (NEGATIVE); OCCULT BLOOD URINE 1+ (NEGATIVE); PROTEIN URINE TRACE (NEGATIVE); SPECIFIC GRAVITY URINE 1.018 (1.005-1.030); UROBILINOGEN URINE 0.2 E.U./dL (0.2-1.0)
[2017-07-01] MEDS ORDERED: LORAZEPAM 2MG/ML CPJ IV PRN (21:45)
[2017-07-01] MEDS ORDERED: ACETAMINOPHEN 650MG SUPP PR PRN (21:45)
[2017-07-01] MEDS ORDERED: ONDANSETRON HCL 4MG/2ML VIAL IV PRN (21:45)
[2017-07-01 22:00] VITALS: BP 110/63
[2017-07-01] MEDS: DEXT 5%/0.45% NACL 1000ML 1,000 ML IV SCH (22:34)
[2017-07-01] MEDS ORDERED: LOV40 SQ (23:20)
[2017-07-01] MEDS ORDERED: ACET160S JT (23:20)
[2017-07-01] MEDS ORDERED: DILT120C11 JT (23:20)
[2017-07-01] MEDS ORDERED: BISA-81 PR (23:20)
[2017-07-01] MEDS ORDERED: DIGO125T82 JT (23:20)
[2017-07-01] MEDS ORDERED: OMEP40CA34 JT (23:20)
[2017-07-01] MEDS ORDERED: MAGN800O JT (23:20)
[2017-07-01] MEDS: PIPERACILLIN/TAZ 2.25G PREMIX 50 ML IV SCH (23:50)
[2017-07-02] VITALS: BP 118/52
[2017-07-02 04:00] VITALS: BP 106/73
[2017-07-02] MEDS: PIPERACILLIN/TAZ 2.25G PREMIX 50 ML IV SCH ×4 (05:42→23:52)
[2017-07-02 06:33] LABS: HEMATOCRIT. 31.5 % (36.0-48.0); HEMOGLOBIN. 10.1 g/dL (12.0-16.0); MEAN CORPUSCULAR HEMOGLOBIN 26.3 pg (28.0-32.0); MEAN CORPUSCULAR VOLUME 81.7 fL (81.0-99.0); MEAN PLATELET VOLUME 8.9 fl (7.4-10.4); PLATELET 424 x1000/uL (130-400); RED BLOOD CELL COUNT 3.85 mill/uL (4.2-5.4); RED CELL DISTRIBUTION WIDTH 20.1 % (11.6-14.6)
[2017-07-02 06:53] LABS: CHLORIDE 103 mEq/L (98-107)
[2017-07-02 08:00] VITALS: BP 99/72
[2017-07-02] MEDS: ENOXAPARIN 40MG/0.4ML SYR SUBCUT SCH (08:15)
[2017-07-02] MEDS: DEXT 5%/0.45% NACL 1000ML 1,000 ML IV SCH ×2 (11:00→23:53)
[2017-07-02 12:00] VITALS: BP 107/60
[2017-07-02 13:01] LABS: INR 1.1
[2017-07-02 16:00] VITALS: BP 121/67
[2017-07-02 19:32] LABS: PLATELET ESTIMATE INCREASED
[2017-07-02 20:00] VITALS: BP 101/62
[2017-07-03] VITALS: BP 100/60
[2017-07-03 04:00] VITALS: BP 121/80
[2017-07-03] MEDS: PIPERACILLIN/TAZ 2.25G PREMIX 50 ML IV SCH ×3 (05:09→18:26)
[2017-07-03 08:00] VITALS: BP 113/64
[2017-07-03 09:03] LABS: HEMATOCRIT. 27.8 % (36.0-48.0); HEMOGLOBIN. 9.4 g/dL (12.0-16.0); MEAN CORPUSCULAR HEMOGLOBIN 27.6 pg (28.0-32.0); MEAN CORPUSCULAR VOLUME 81.9 fL (81.0-99.0); MEAN PLATELET VOLUME 8.1 fl (7.4-10.4); PLATELET 418 x1000/uL (130-400)
[2017-07-03 09:10] LABS: CHLORIDE 102 mEq/L (98-107)
[2017-07-03] MEDS: ENOXAPARIN 40MG/0.4ML SYR SUBCUT SCH (10:01)
[2017-07-03 12:00] VITALS: BP 158/65
[2017-07-03] MEDS ORDERED: POTASSIUM CHLORIDE INJ 40 MEQ in DEXT 5% WATER 250 ML IV SCH (13:00)
[2017-07-03] MEDS: DEXT 5%/0.45% NACL KCL 40MEQ/L 1,000 ML IV SCH (15:06)
[2017-07-03 16:00] VITALS: BP 116/74
[2017-07-03 20:00] VITALS: BP 128/100
[2017-07-03 20:54] LABS: PLATELET ESTIMATE INCREASED
[2017-07-03] MEDS: PANTOPRAZOLE SODIUM 40 MG/VIAL IV SCH (21:00)
[2017-07-04] VITALS: BP 118/83
[2017-07-04] MEDS: DEXT 5%/0.45% NACL KCL 40MEQ/L 1,000 ML IV SCH (01:20)
[2017-07-04] MEDS: PIPERACILLIN/TAZ 2.25G PREMIX 50 ML IV SCH ×4 (06:54→18:58)
[2017-07-04 08:00] VITALS: BP 125/91
[2017-07-04] MEDS: PANTOPRAZOLE SODIUM 40 MG/VIAL IV SCH ×2 (09:30→20:47)
[2017-07-04 12:00] VITALS: BP 132/90
[2017-07-04 12:25] LABS: CHLORIDE 103 mEq/L (98-107)
[2017-07-04 16:00] VITALS: BP 123/94
[2017-07-04 20:00] VITALS: BP 122/87
[2017-07-05] VITALS (7 sets, daily range): BP systolic 110–134; BP diastolic 64–91
[2017-07-05] MEDS: DEXT 5%/0.45% NACL KCL 40MEQ/L 1,000 ML IV SCH (04:16)
[2017-07-05] MEDS: PIPERACILLIN/TAZ 2.25G PREMIX 50 ML IV SCH ×2 (05:49)
[2017-07-05] MEDS: PANTOPRAZOLE SODIUM 40 MG/VIAL IV SCH ×2 (09:03→20:55)
[2017-07-05] MEDS ORDERED: SODIUM CHLORIDE 0.9% 10ML VIAL ONE ×2 (13:31→13:35)
[2017-07-05] MEDS ORDERED: SIMETHICONE 40 MG/0.6 ML 30ML ONE (13:31)
[2017-07-05] MEDS ORDERED: SODIUM BICARBONATE 4% (2.4MEQ) 5ML VIAL IV ONE (15:10)
[2017-07-05] MEDS ORDERED: LIDOCAINE HCL/PF 1% 10 MG/ML 5ML VIAL ONE (15:10)
[2017-07-05] MEDS: LINEZOLID 600 MG PREMIX 300 ML IV SCH (16:20)
[2017-07-05] MEDS ORDERED: MIDAZOLAM HCL 5 MG/5 ML VIAL IV PRN (17:10)
[2017-07-05] MEDS ORDERED: MIDAZOLAM HCL 5 MG/5 ML VIAL ONE (17:16)
[2017-07-05] MEDS ORDERED: FENTANYL CITRATE/PF 50MCG/ML 2ML VIAL ONE (17:16)
[2017-07-05] MEDS ORDERED: PIPERACILLIN/TAZOBACTAM 2.25 G in DEXTROSE 5% WATER 50 ML IV SCH (18:00)
[2017-07-06] VITALS: BP 113/81
[2017-07-06] MEDS: DEXT 5%/0.45% NACL KCL 40MEQ/L 1,000 ML IV SCH ×2 (02:31→19:59)
[2017-07-06] MEDS: LINEZOLID 600 MG PREMIX 300 ML IV SCH ×2 (02:31→15:53)
[2017-07-06 04:00] VITALS: BP 114/78
[2017-07-06] MEDS: MEROPENEM 1,000 MG in SODIUM CHLORIDE 0.9% 100 ML IV SCH ×2 (04:00→15:53)
[2017-07-06 04:18] LABS: CLARITY URINE TURBID (CLEAR); COLOR URINE DARK YELLOW (YELLOW); KETONES URINE NEGATIVE (NEGATIVE); LEUKOCYTE ESTERASE URINE 3+ (NEGATIVE); NITRITE URINE NEGATIVE (NEGATIVE); OCCULT BLOOD URINE 1+ (NEGATIVE); PROTEIN URINE 1+ (NEGATIVE); SPECIFIC GRAVITY URINE 1.018 (1.005-1.030)
[2017-07-06 07:37] LABS: HEMATOCRIT. 26.7 % (36.0-48.0); HEMOGLOBIN. 9.1 g/dL (12.0-16.0); MEAN CORPUSCULAR HEMOGLOBIN 27.8 pg (28.0-32.0); MEAN CORPUSCULAR VOLUME 81.9 fL (81.0-99.0); MEAN PLATELET VOLUME 8.5 fl (7.4-10.4); PLATELET 374 x1000/uL (130-400); RED BLOOD CELL COUNT 3.26 mill/uL (4.2-5.4); RED CELL DISTRIBUTION WIDTH 19.3 % (11.6-14.6)
[2017-07-06 08:00] VITALS: BP 152/74
[2017-07-06 08:32] LABS: CHLORIDE 103 mEq/L (98-107)
[2017-07-06] MEDS: PANTOPRAZOLE SODIUM 40 MG/VIAL IV SCH ×2 (09:18→22:34)
[2017-07-06] MEDS ORDERED: POTASSIUM CHLORIDE 20MEQ/PACKET PO NR (10:30)
[2017-07-06 12:00] VITALS: BP 142/86
[2017-07-06 14:18] LABS: PLATELET ESTIMATE NORMAL
[2017-07-06 16:05] VITALS: BP 119/79
[2017-07-06 20:00] VITALS: BP 105/82
[2017-07-07] VITALS: BP 110/82
[2017-07-07] MEDS: LINEZOLID 600 MG PREMIX 300 ML IV SCH ×2 (03:36→16:10)
[2017-07-07 04:00] VITALS: BP 121/86
[2017-07-07] MEDS: MEROPENEM 1,000 MG in SODIUM CHLORIDE 0.9% 100 ML IV SCH ×2 (05:02→18:48)
[2017-07-07] MEDS: DIGOXIN 125MCG TABLET GT SCH ×2 (05:59→18:48)
[2017-07-07] MEDS: DILTIAZEM HCL 30MG TABLET GT PRN (06:02)
[2017-07-07 08:00] VITALS: BP 165/67
[2017-07-07] MEDS: PANTOPRAZOLE SODIUM 40 MG/VIAL IV SCH ×2 (08:34→23:33)
[2017-07-07] MEDS: DEXT 5%/0.45% NACL KCL 40MEQ/L 1,000 ML IV SCH ×2 (08:34→23:33)
[2017-07-07 12:00] VITALS: BP 144/87
[2017-07-07 16:00] VITALS: BP 101/73
[2017-07-07] MEDS: DOCUSATE SODIUM SUGAR FREE 100MG/10ML UDC NG SCH (18:58)
[2017-07-07 20:00] VITALS: BP 139/71
[2017-07-08] VITALS: BP 144/87
[2017-07-08] MEDS: DILTIAZEM HCL 30MG TABLET GT PRN ×3 (00:57→15:23)
[2017-07-08] MEDS: LINEZOLID 600 MG PREMIX 300 ML IV SCH (03:03)
[2017-07-08 04:00] VITALS: BP 116/68
[2017-07-08] MEDS: MEROPENEM 1,000 MG in SODIUM CHLORIDE 0.9% 100 ML IV SCH (04:15)
[2017-07-08 08:00] VITALS: BP 140/96
[2017-07-08] MEDS: PANTOPRAZOLE SODIUM 40 MG/VIAL IV SCH (08:33)
[2017-07-08] MEDS: DOCUSATE SODIUM SUGAR FREE 100MG/10ML UDC NG SCH (08:33)
[2017-07-08] MEDS ORDERED: FLUCONAZOLE 100MG/50ML PREMIX IV ONE (09:45)
[2017-07-08] MEDS ORDERED: POTASSIUM CHLORIDE 20MEQ TABLET SR PO ONE (09:45)
[2017-07-08] MEDS ORDERED: AMOXICILLIN 250MG CAPSULE GT SCH (10:00)
[2017-07-08] MEDS ORDERED: POTASSIUM CHLORIDE 20MEQ/PACKET GT NR (10:00)
[2017-07-08] MEDS: DEXT 5%/0.45% NACL KCL 40MEQ/L 1,000 ML IV SCH (10:52)
[2017-07-08] MEDS ORDERED: FLUCONAZOLE 100MG/50ML in BAG IV NR (11:00)
[2017-07-08 12:00] VITALS: BP 120/88
[2017-07-08] MEDS ORDERED: AMOXICILLIN 250 MG/5 ML 100 ML BOTTLE PO SCH (14:00)
[2017-07-08 16:00] VITALS: BP 122/66
[2017-07-08 16:24] VITALS: BP 122/66
[2017-07-08] MEDS ORDERED: NITROFURANTOIN 25 MG/5 ML GT SCH (18:00)
[2017-07-08] MEDS ORDERED: NITROFURANTOIN 100MG M/M CAPSULE PO SCH (21:00)
== END 2017-07-08 17:40 | DRG 871 ==
LOC: ER 14:52 → 7WST 17:45 → ENRESERV 19:47
PROVIDERS: ADMIT Hospitalist; ATTEND Hospitalist
PROC: 02HV33Z Insertion of Infusion Device into Superior Vena Cava, Percutaneous Approach (ICD-10-PCS; 2017-07-05)
PROC: B548ZZA Ultrasonography of Superior Vena Cava, Guidance (ICD-10-PCS; 2017-07-05)
PROC: 0D20XUZ Change Feeding Device in Upper Intestinal Tract, External Approach (ICD-10-PCS; 2017-07-05)
PROC: 0DPDXUZ Removal of Feeding Device from Lower Intestinal Tract, External Approach (ICD-10-PCS; 2017-07-05)
PROC: B5181ZA Fluoroscopy of Superior Vena Cava using Low Osmolar Contrast, Guidance (ICD-10-PCS; principal; 2017-07-05 18:00)
DX: A41.9 Sepsis, unspecified organism (principal); J69.0 Pneumonitis due to inhalation of food and vomit; J96.00 Acute respiratory failure, unspecified whether with hypoxia or hypercapnia; E44.0 Moderate protein-calorie malnutrition; I48.91 Unspecified atrial fibrillation; K94.13 Enterostomy malfunction; I50.9 Heart failure, unspecified; I48.92 Unspecified atrial flutter; K94.23 Gastrostomy malfunction; R13.12 Dysphagia, oropharyngeal phase; N39.0 Urinary tract infection, site not specified; D64.9 Anemia, unspecified; Y73.3 Surgical instruments, materials and gastroenterology and urology devices (including sutures) associated with adverse incidents; Y83.3 Surgical operation with formation of external stoma as the cause of abnormal reaction of the patient, or of later complication, without mention of misadventure at the time of the procedure; E87.6 Hypokalemia; F03.90 Unspecified dementia, unspecified severity, without behavioral disturbance, psychotic disturbance, mood disturbance, and anxiety; B96.89 Other specified bacterial agents as the cause of diseases classified elsewhere; B95.2 Enterococcus as the cause of diseases classified elsewhere; B96.20 Unspecified Escherichia coli [E. coli] as the cause of diseases classified elsewhere; K29.70 Gastritis, unspecified, without bleeding; Z16.21 Resistance to vancomycin; Z82.49 Family history of ischemic heart disease and other diseases of the circulatory system; Z87.11 Personal history of peptic ulcer disease; Z90.12 Acquired absence of left breast and nipple; Z22.322 Carrier or suspected carrier of Methicillin resistant Staphylococcus aureus; Z68.21 Body mass index [BMI] 21.0-21.9, adult
CPT/HCPCS: 36415; 36569; 71045; 76937; 77001; 80053; 81003; 83605; 83690; 83735; 83880; 85025; 85610; 87040; 87070; 87077; 87086; 87106; 87186; 87205; 92610; 93005; 99285; A4216; A6261; C1725; C1893; C9113; J1450; J1650; J2020; J2185; J2250; J2405; J2543; J3010; J3480; J3490; J7040; J7050; J7060